=== PATIENT | female | born 1995 | race Caucasian/White ===

== ENCOUNTER 2017-05-31 17:39 | Emergency (ER) | payer BC | END 2017-05-31 21:09 | disposition home or self-care (01) | LOC: ER 17:39 | DX: R10.33 Periumbilical pain (principal); R11.0 Nausea; E78.5 Hyperlipidemia, unspecified; E28.2 Polycystic ovarian syndrome; F17.210 Nicotine dependence, cigarettes, uncomplicated; E66.9 Obesity, unspecified | CPT/HCPCS: 36415 ==